=== PATIENT | male | born 1935 | race Caucasian/White ===

== ENCOUNTER 2016-10-23 06:45 | Inpatient (IN) | payer MEDICARE, OTHER ==
[~2016-10-23] VITALS: Ht 170.2 cm; Wt 62.6 kg
--- NOTE | ~2016-10-23 | OR ---
PATIENT'S NAME: [facility] AGE: 81 Y [address] ROOM: [address] [place], [place] [address] LOCATION: [facility] ADMIT DATE: 10/23/2016 OR/Procedure Report DISCHARGE DATE: FAMILY PHYSICIAN: Baltazar Davies ATTENDING PHYSICIAN: GELY LOPEZ SURGEON: Ronny Guerrier MD ART EDUCATOR: Galdino Pittman PA-C. DATE OF PROCEDURE: 10/23/2016 PREOPERATIVE DIAGNOSIS: Intertrochanteric fracture left hip. POSTOPERATIVE DIAGNOSIS: Intertrochanteric fracture left hip. PROCEDURE PERFORMED: Open reduction and internal fixation of left hip intertrochanteric fracture with intramedullary device (gamma nail). SURGEON: Ronny Guerrier MD ANESTHESIA: Spinal. ESTIMATED BLOOD LOSS: Less than 50 mL. IMPLANTS: Synthes 125 degree 11 mm trochanteric femoral nail with 105 mm lag screw and 40 mm distal interlocking screw. DRAINS: None SPECIMEN: None COMPLICATIONS: None INDICATION FOR PROCEDURE: Please refer to my separately dictated consultation note. The patient presents with a left hip intertrochanteric fracture. Operative and nonoperative options have been reviewed. Potential adverse sequelae of the injury itself have been reviewed. Risks, benefits, limitations, and indications for surgery have been thoroughly reviewed and informed consent has been granted. We have specifically reviewed risks and implications of the following: infection, malunion, nonunion, deep venous thrombosis, pulmonary embolism, mortality, neurovascular complications, blood transfusion risks, decubitus ulcer formation, pneumonia, avascular necrosis, and the potential need for further surgery (including the potential need for salvage with hip hemiarthroplasty versus total hip arthroplasty). We have discussed the necessity for 2 months of restricted weightbearing postoperatively. A preoperative internal medicine consultation has been obtained, and the patient has been medically cleared for surgery. PATIENT'S NAME: [facility] AGE: 81 Y [address] ROOM: [id number] [place], [place] [address] LOCATION: [facility] ADMIT DATE: 10/23/2016 OR/Procedure Report DISCHARGE DATE: FAMILY PHYSICIAN: Baltazar Davies ATTENDING PHYSICIAN: GELY LOPEZ DESCRIPTION OF PROCEDURE: The patient was positioned supine on the fracture table after administration of anesthesia and prophylactic antibiotics. The correct side and anticipated procedure were confirmed via a verbal timeout including myself, the marketing database analyst, and the circulating nurse. A well-padded groin post was placed. Both feet and ankles were well padded. The right foot was placed into a stirrup-type leg linn. The left foot was placed into a traction boot. Under fluoroscopic guidance, gentle longitudinal traction and internal rotation were applied across the fracture site through the left foot until a suitable reduction had been confirmed under AP and lateral fluoroscopic imaging. The lateral aspect of the left hip and thigh were scrubbed, prepped, and draped with vigilant sterile technique. The tip of the left greater trochanter was approached through a 5 cm direct lateral longitudinal incision. The iliotibial band was sharply divided longitudinally in line with the overlying skin incision. The tip of the left greater trochanter was palpated, and a cannulated awl was utilized to access the intramedullary canal of the proximal femur through the tip of the left greater trochanter. A ball tipped guidewire was placed through the awl and across the fracture site under fluoroscopic guidance, and the awl was subsequently removed. The cannulated entrance reamer was utilized through the appropriate soft tissue guide. The gamma nail was seated to the appropriate depth over the guidewire, and the guidewire was extracted. Fluoroscopic imaging confirmed appropriate position of the gamma nail. The outrigger guide and guide cannula were subsequently utilized to place a threaded-tipped guidewire centrally within the left femoral head and neck through a separate direct lateral 2 cm longitudinal incision. Appropriate position of the guidewire was confirmed under AP and lateral fluoroscopic imaging. Appropriate depth for the lag screw was measured. The cannulated reamer was set to the appropriate depth and fully seated through the appropriate soft tissue guide. The lag screw was seated to the appropriate depth under AP and lateral fluoroscopic guidance. The anti-rotational set screw was deployed. The outrigger guide and cannula were subsequently utilized to place the distal interlocking screw through a separate 5 mm direct lateral longitudinal incision. AP, lateral, and oblique fluoroscopic imaging of the left hip and left proximal femur confirmed appropriate position of all hardware and maintenance of an appropriate reduction of the fracture. Each of the 3 incisions was thoroughly irrigated with bacteriostatic saline lavage. The fascia was closed with simple deep interrupted 0 Vicryl sutures. PATIENT'S NAME: RONNY GARY [facility] AGE: 81 Y [address] ROOM: [id number] [place], [place] [address] LOCATION: [facility] ADMIT DATE: 10/23/2016 OR/Procedure Report DISCHARGE DATE: FAMILY PHYSICIAN: Baltazar Davies ATTENDING PHYSICIAN: GELY LOPEZ Each of the incisions was closed with superficial buried interrupted 2-0 Vicryl sutures and surgical cornell. The dressings consisted of Xeroform gauze, sterile gauze, and occlusive tape. There were no complications. The patient was carefully transferred off the fracture table and transported to the postanesthesia care unit in stable condition. MD ROSAS STEELE/marilee /[id number] d: 10/23/16 1834 t: 10/26/16 0926, OPERATIVE SUMMARY
--- NOTE | ~2016-10-23 | HP ---
PATIENT'S NAME: COOKIE [facility] AGE: 81 Y [address] ROOM: [place] [address] LOCATION: [facility] ADMIT DATE: 10/23/2016 History & Physical DISCHARGE DATE: FAMILY PHYSICIAN: PHYSICIAN, UNKNOWN ATTENDING PHYSICIAN: GELY LOPEZ DATE OF SERVICE: CHIEF COMPLAINT: Left hip pain. HISTORY OF PRESENT ILLNESS: This is an 81-year-old male, who says that he was trying to walk to the bathroom and his legs gave out and he fell onto his left side of the hip on the ground. He denies any head trauma or any loss of consciousness. After the fall, he felt this excruciating pain in the left hip and could not get up. He was brought to [facility] for evaluation. Over there, x-ray of the left hip showed he has a left hip fracture, and the patient was sent over here for orthopedic care. At baseline, the patient is a physically active male with METS score more than 4. At baseline, he also denies any chest pain or dyspnea at rest or on exertion. The patient also denies any history of cardiac problems including arrhythmia or heart failure or any prior cardiac surgery. He also denies ever having any chest pain before. He also denies ever having any dyspnea on exertion or at rest before. Currently, his only complaint is left hip pain. The patient was a former cigarette smoker, and he was told he had a COPD, but he does not require oxygen at home. He does use Spiriva. He says that at baseline he has daily cough, sometimes dry, sometimes productive. When it is productive, the phlegm will be yellow or green, which is from his chronic bronchitis. REVIEW OF SYSTEMS: As mentioned in the history of present illness. All other systems were reviewed and they were negative except for those mentioned in the history of present illness. PAST MEDICAL HISTORY: 1. Benign prostatic hypertrophy. 2. Gastroesophageal reflux disease. 3. Rheumatoid arthritis, on prednisone 2.5 mg p.o. daily for many years and also on hydroxychloroquine, dose unknown. 4. COPD, not on oxygen, uses Spiriva at home. The patient denies any other past medical history. PATIENT'S NAME: COOKIE [facility] AGE: 81 Y [address] ROOM: [place] [id number] LOCATION: [facility] ADMIT DATE: 10/23/2016 History & Physical DISCHARGE DATE: FAMILY PHYSICIAN: PHYSICIAN, VILMA ATTENDING PHYSICIAN: GELY LOPEZ ALLERGIES: NO KNOWN DRUG ALLERGIES ACCORDING TO THE PATIENT. HOME MEDICATIONS: Currently, it has been reconciled. The patient does take prednisone at home 2.5 mg p.o. daily for several years. He denies taking any long-term anticoagulation medication or aspirin. He denies any bleeding in the past. SOCIAL HISTORY: The patient was a former cigarette smoker. He quit when he was 28 years' old, and he used to smoke about 3 cigarettes per day for a few years. He was told by his primary physician that he has COPD. He denies any illegal drug use. He is a social alcohol drinker, but he denies any alcohol abuse or alcohol withdrawal in the past. PAST SURGICAL HISTORY: 1. Small intestine resection twice in the past. He said it was because of some food particle that got stuck in his intestine that required small intestine resection. The last one was done in the year 2015. 2. Appendectomy. FAMILY HISTORY: Father from brain cancer at old age. Mother also from old age from a cause that he could not remember. PHYSICAL EXAMINATION: VITAL SIGNS: At the time of my evaluation, temperature was 98, blood pressure was 132/87, respiration was 14, saturation was 94% on room air, and heart rate was 86. GENERAL APPEARANCE: The patient is alert and oriented x3. In no acute distress. HEENT: Pupils are equally round and reactive to light. Extraocular muscles intact. Anicteric sclerae. Nasal turbinates are normal bilaterally. Moist oral mucosa. NECK: No JVD. CARDIOVASCULAR: Regular rate and rhythm. Normal S1, S2. No murmurs, no rubs, no gallops. RESPIRATORY: Clear to auscultation. No rales, no rhonchi, no wheezing, no crackles. ABDOMEN: Soft, nontender, nondistended, normal bowel sounds, no hepatosplenomegaly. No mass. Bowel sounds are present. No abdominal rigidity. EXTREMITIES: No edema in the upper or lower extremities. NEUROLOGIC: Sensation intact. The patient can wiggle his toes in bilateral PATIENT'S NAME: RONNY GARY [facility] AGE: 81 Y [address] ROOM: [id number] [place], [place] [address] LOCATION: [facility] ADMIT DATE: 10/23/2016 History & Physical DISCHARGE DATE: FAMILY PHYSICIAN: PHYSICIAN, UNKNOWN ATTENDING PHYSICIAN: GELY LOPEZ. Dorsalis pedis pulse and posterior tibialis pulse are +2, present bilaterally. Grossly nonfocal. The only thing I did not examine is the muscle strength on the left lower extremity, obviously due to the fracture in the left hip. SKIN: No ulcer, no rash, no cyanosis. LABORATORY DATA: Currently, all the blood work is pending. IMAGING STUDIES: Chest x-ray on admission, official reading is pending. Based on my review, no gross abnormality. He might have a small pleural effusion in the right lower lung. EKG on admission on October 23, 2016, at 7:17 a.m. shows sinus rhythm, heart rate of 85 beats per minute, with left axis deviation, but no acute ischemic changes. NV 186 milliseconds. QRS 99 milliseconds. QTc 359 milliseconds. No prior EKG for comparison. ASSESSMENT AND PLAN: 1. Regarding his left hip fracture status post mechanical fall: Deferred to Orthopedic Surgery team for surgical repair. 2. Regarding his preoperative medical evaluation for noncardiac surgery: Orthopedic surgery is considered as an intermediate risk surgery. From the guideline of preoperative medical evaluation for noncardiac surgery, the patient currently does not have any active contraindication that will require any additional testing. However, the only thing that is pending is the blood work. If the patient has normal blood work, then patient can proceed to surgery this morning. However, given that patient has chronic obstructive pulmonary disease, the patient is at moderate to high risk of pulmonary complication during perioperative and postoperative period where patient might end up intubated after surgery due to his chronic obstructive pulmonary disease diagnosis and he might be difficult to get extubated. I have already expressed this concern to the patient and his family member and they are aware of his potential complication. For this reason, I am going to give him 1 dose of DuoNeb nebulization right now prior to surgery. 3. Regarding his rheumatoid arthritis, chronically on p.o. prednisone 2.5 mg daily: Given that the patient is scheduled for surgery, the patient will require a stress dose of the hydrocortisone. I will give him IV hydrocortisone 100 mg daily, first dose now, for a total of 2 days. The patient should continue his home p.o. prednisone on a daily basis. 4. Regarding his gastroesophageal reflux disease: I will give him p.o. Protonix 40 mg daily after surgery. 5. Regarding his chronic obstructive pulmonary disease: As mentioned PATIENT'S NAME: RONNY GARY [facility] AGE: 81 Y [address] ROOM: [place] [address] LOCATION: [facility] ADMIT DATE: 10/23/2016 History & Physical DISCHARGE DATE: FAMILY PHYSICIAN: PHYSICIAN, UNKNOWN ATTENDING PHYSICIAN: GELY LOPEZ before, I will give him 1 dose of DuoNeb right now and then re-evaluate after he comes out from surgery. Currently, there is no chronic obstructive pulmonary disease exacerbation at the moment. 6. Regarding his deep vein thrombosis prophylaxis: Foot pump given that patient is scheduled for surgery this morning. Time spent in care on the day of admission 35 minutes where 10 minutes was spent on chart review and the remainder of the time was spent on interview and also on physical examination and also on counseling which includes going over the plan of care and also addressing all the questions and concerns the patient and the patient's family member had at the bedside to their satisfaction. Further plan will depend on clinical course. GELY LOPEZ MD CC/marilee /[id number] D: [id number] T: 505 HISTORY & PHYSICAL
--- NOTE | ~2016-10-23 | HP ---
PATIENT'S NAME: RONNY GARY [facility] AGE: 81 Y [address] ROOM: [place] [address] LOCATION: [facility] ADMIT DATE: 10/23/2016 History & Physical DISCHARGE DATE: FAMILY PHYSICIAN: PHYSICIAN, UNKNOWN ATTENDING PHYSICIAN: GELY LOPEZ DATE OF SERVICE: ADDENDUM: The blood work came back, and the patient does not require any additional testing at the moment. The patient will be cleared to proceed for surgery; however, as mentioned before, the patient is at [id number] risk of pulmonary complication during perioperative and postoperative period, and the patient may be difficult to get extubated. The patient is aware of this potential risk and agreed to proceed with surgery. Further plan will depend on clinical course. GELY LOPEZ MD CC/marilee /[id number] D: [id number] T: [id number] HISTORY & PHYSICAL
--- NOTE | ~2016-10-23 | DS ---
PATIENT'S NAME: RONNY GARY [facility] AGE: 81 Y [address] ROOM: [address] [place], [place] [address] LOCATION: [facility] ADMIT DATE: 10/23/2016 Discharge Summary DISCHARGE DATE: 10/27/2016 FAMILY PHYSICIAN: PhysicianBaltazar ATTENDING PHYSICIAN: Clement Bernard CONSULTING PHYSICIAN: Dr. Ronny Guerrier. FAMILY PHYSICIAN: Unknown at the time of this dictation. DISCHARGE DIAGNOSES: 1. Left hip fracture, status post mechanical fall, status post open reduction and internal fixation with intramedullary nail repair. 2. Rheumatoid arthritis. 3. Gastroesophageal reflux disease. 4. Chronic obstructive pulmonary disease. 5. Benign prostatic hypertrophy. 6. Deep vein thrombosis prophylaxis. DISCHARGE MEDICATIONS: 1. Doxycycline 100 mg p.o. daily. 2. Lovenox 40 mg subcutaneously daily x14 days total postop. 3. Prilosec 20 mg p.o. q.a.m. 4. Ferrous sulfate 325 mg p.o. twice daily. 5. Plaquenil 200 mg p.o. q.a.m. 6. Prednisone 2.5 mg p.o. daily. 7. Flomax 0.4 mg p.o. q.h.s. 8. Tylenol 500 mg 1 or 2 tablets every 6 hours p.r.n. fever greater than 101 or mild pain. 9. Pennington 5/325, 1 or 2 tablets every 4 hours p.r.n. [id number] pain. 10. Dulcolax suppository 10 mg rectally p.r.n. constipation. 11. Milk of magnesia 30 mL p.o. daily p.r.n. constipation. 12. Fleet enema 133 mL rectally p.r.n. constipation. 13. Albuterol sulfate 2.5 mg INH q.2 hours p.r.n. shortness of breath or wheezing. 14. Ipratropium/albuterol 0.5/3 mg per 3 mL INH q.4 hours p.r.n. shortness of breath or wheeze. 15. Tramadol 50 mg 1 tablet p.o. q.4 to 6 hours p.r.n. pain. 16. MiraLAX 17 g p.o. daily. PRINCIPAL PROCEDURES: Open reduction and internal fixation of left hip intertrochanteric fracture with intramedullary device (gamma nail) on 10/23/[address] Ronny Guerrier. HOSPITAL COURSE: Please refer to the admitting H and P dictated by Dr. Bernard. PATIENT'S NAME: RONNY GARY [facility] AGE: 81 Y [address] ROOM: [address] [place], [place] [address] LOCATION: [facility] ADMIT DATE: 10/23/2016 Discharge Summary DISCHARGE DATE: 10/27/2016 FAMILY PHYSICIAN: , Baltazar ATTENDING PHYSICIAN: Clement Bernard The patient was admitted, Orthopedic consult was placed. The patient was seen by Dr. Guerrier. The patient was ultimately taken to the OR on 10/23/2016. The patient did reasonably well postoperatively. There were no postop complications. The patient was placed on Lovenox for DVT prophylaxis. Ultimately, Care Management was involved and arrangements were made for the patient to get discharged to [facility]. DISPOSITION: On 10/27/2016, the patient was discharged by private car in custody of his son to [facility] in [place], [place]. DISCHARGE INSTRUCTIONS: His weightbearing status is toe-touch weightbearing of the left lower extremity. No left hip range of motion or strengthening. No dressing changes and the Mepilex dressing is in place. They are to call Dr. Guerrier's office with any concerns. He should undergo PT and OT. He is on an as tolerated diet. O2 can be used to keep sats greater than 90, it was not necessary at the time of discharge. The patient is to follow up with Dr. Guerrier in 1 week. The patient voiced understanding of this plan. Thank you for allowing us to assist in the patient's care. This discharge took greater than 30 minutes. PHAM FOLEY PA-C FOR MD MARCIN BILLINGSLEY/marilee /[id number] CC: Ronny Guerrier MD [facility] d: 10/28/16 0210 t: 07/27/17 1646, DISCHARGE SUMMARY
--- NOTE | ~2016-10-23 | CON ---
PATIENT'S NAME: [facility]OOKIE [facility] AGE: 81 Y [address] ROOM: [place] [address] LOCATION: [facility] ADMIT DATE: 10/23/2016 Consultation DISCHARGE DATE: FAMILY PHYSICIAN: Baltazar Davies ATTENDING PHYSICIAN: GELY LOPEZ DATE OF CONSULTATION: 10/23/2016 REFERRING PHYSICIAN: RONNY MEJIA MD HISTORY OF PRESENT ILLNESS: Mr. Hua is an 81-year-old male presenting with a displaced left hip intertrochanteric fracture. He had no history of left hip pain prior to tripping and falling while [place] he was staying at [facility] with his nephew this weekend. He was taken to the [place] [facility] by ambulance. I was contacted by the physician in [place], and we accepted the patient to be transferred here. The patient denies history of previous pain in his hip. He has longstanding rheumatoid arthritis, but this has not created hip symptoms. He denies head trauma or loss of consciousness. He denies pain elsewhere as a result of the fall. ACTIVE MEDICAL PROBLEMS: Rheumatoid arthritis. PRESENT MEDICATIONS: Include prednisone. SOCIAL HISTORY: He lives independently. At baseline, he does not require an assistive device for ambulation. He resides in [place]. His nephew (who accompanies him) lives south of [place]. PHYSICAL EXAMINATION: GENERAL: Alert, oriented, very slender, slightly frail, elderly gentleman who is in no distress. LUNGS: Respirations are nonlabored. EXTREMITIES: His left lower extremity is shortened and externally rotated. He is moderately cachectic. There is pain with passive range of motion of the left hip. There is tenderness at the left hip. There is no pain with passive range of motion of the right hip. There is no tenderness at the right hip. There is no peripheral edema in either lower extremity. He is able to actively dorsiflex and plantar flex both ankles with 4/5 motor strength. 1+ posterior tibial pulses bilaterally. There is generalized muscle atrophy throughout both upper extremities and both lower extremities. RADIOGRAPHS: PATIENT'S NAME: [facility]IE [facility] AGE: 81 Y [address] ROOM: [place] [address] LOCATION: [facility] ADMIT DATE: 10/23/2016 Consultation DISCHARGE DATE: FAMILY PHYSICIAN: Baltazar Davies ATTENDING PHYSICIAN: GEYL LOPEZ AP and lateral radiographs of the left hip demonstrate a displaced intertrochanteric fracture. There is no hardware in the left hip. There is no lytic lesion. There is no significant left hip joint space narrowing. There is significant generalized osteopenia. IMPRESSION: 1. Displaced left hip intertrochanteric fracture. 2. Rheumatoid arthritis (on chronic prednisone). RECOMMENDATIONS: I have reviewed operative and nonoperative options. I have recommended open reduction and internal fixation. I have discussed the technical aspects of surgery as well as risks and limitations thereof. We specifically reviewed risks and implications of infection, deep venous thrombosis, pulmonary embolism, malunion, nonunion, neurovascular complications, blood transfusion risks, and potential need for further surgery. We have discussed the necessity for restricted weightbearing for 2 months. I have asked that the discharge planners speak with the patient's family members (from [place]) this morning. I have informed the patient that I think it would be most appropriate for him to go some place with 24-hour assistance to recover (as opposed to returning home independently). All of his questions and concerns were answered to his satisfaction. MD ROSAS STEELE/marilee /[id number] d: 10/23/16 1530 t: 10/26/16 0923, CONSULTATION REPORT
[2016-10-23 08:07] LABS: ALBUMIN 3.6 gm/dL (3.5-5.0); ALK PHOS 49 IU/L (33-138); ALT 30 IU/L (12-78); ANION GAP 9.7 (10.0-19.0); AST 23 IU/L (10-40); BLOOD UREA NITROGEN 22 mg/dL (6-24); CALCIUM 8.2 mg/dL (8.5-10.5); CHLORIDE 105 mMol/L (96-110); CO2 29 mMol/L (22-32); CPK 114 IU/L (35-332); POTASSIUM 3.7 mMol/L (3.7-5.1); SODIUM 140 mMol/L (135-145); TOTAL BILIRUBIN 0.7 mg/dL (0.0-1.5); TOTAL PROTEIN 6.6 g/dL (6.0-8.4)
[2016-10-23] MEDS ORDERED: DOXYCYCLINE100 MG PO (08:07)
[2016-10-23] MEDS ORDERED: DELTASONE2.5 MG PO (08:08)
[2016-10-23] MEDS ORDERED: FLOMAX0.4 MG PO (08:09)
[2016-10-23] MEDS ORDERED: PRILOSEC20 MG PO (08:10)
[2016-10-23] MEDS ORDERED: PLAQUENIL200 MG PO (08:11)
[2016-10-23 08:22] LABS: BASOPHIL % 0.2 %; HEMATOCRIT 35.9 % (33.0-50.0); HEMOGLOBIN 12.1 g/dL (11.0-16.0); IMMATURE GRANULOCYTE # 0.1 K/uL (0.0-0.3); IMMATURE GRANULOCYTE % 0.6 %; LYMPHOCYTE # 0.7 K/uL (0.8-4.0); LYMPHOCYTE % 4.9 %; MCH 32.1 pg (27.0-34.0); MCHC 33.7 gm/dL (32.0-36.5); MCV 95.2 fl (83.0-98.0); MONOCYTE # 1.1 K/uL (0.0-1.0); MONOCYTE % 7.9 %; MPV 9.1 fl (9.4-12.4); NEUTROPHIL # (ANC) 12.5 K/uL (1.4-9.0); NEUTROPHIL % 86.4 %; NRBC % 0 /100WBC (0-0.00); PLATELET COUNT 200 K/uL (150-450); RBC 3.77 M/uL (3.50-5.50); RDW-CV 14.2 % (11.9-14.6); WBC 14.4 K/uL (4.0-11.0)
[2016-10-23 08:28] LABS: INR - (THERAPEUTIC) 1.06 (0.92-1.07); PROTIME 11.1 SECONDS (9.8-11.4); PTT 25 SECONDS (25-32)
[2016-10-23 08:48] LABS: BILIRUBIN URINE NEGATIVE (NEGATIVE); BLOOD URINE NEGATIVE /UL (NEGATIVE); COLOR URINE STRAW (YELLOW); GLUCOSE URINE NEGATIVE (NEGATIVE); KETONE URINE NEGATIVE (NEGATIVE); LEUKOCYTES URINE NEGATIVE /UL (NEGATIVE); NITRITE URINE NEGATIVE (NEGATIVE); PROTEIN URINE NEGATIVE (NEGATIVE); SPEC GRAVITY URINE 1.015 (1.003-1.035); TURBIDITY URINE 1+ (CLEAR); UROBILINOGEN URINE NORMAL (NORMAL)
[2016-10-23 08:55] LABS: AMORPHOUS URINE 1+ (NEGATIVE); BACTERIA URINE RARE (NEGATIVE); EPITHELIAL URINE NEGATIVE #/HPF (NEGATIVE); RBC URINE 0-2 #/HPF (NEGATIVE); WBC URINE RARE #/HPF (NEGATIVE)
[2016-10-24 06:18] LABS: HEMATOCRIT 31.5 % (33.0-50.0); HEMOGLOBIN 10.3 g/dL (11.0-16.0)
[2016-10-25 06:13] LABS: HEMOGLOBIN 9.1 g/dL (11.0-16.0)
== END 2016-10-27 15:00 | DRG 481 ==
LOC: G3N 06:45
PROVIDERS: ADMIT Internal Medicine
PROC: 0QS706Z Reposition Left Upper Femur with Intramedullary Internal Fixation Device, Open Approach (ICD-10-PCS; principal; 2016-10-23)
DX: S72.142A Displaced intertrochanteric fracture of left femur, initial encounter for closed fracture (principal); D62 Acute posthemorrhagic anemia; J44.9 Chronic obstructive pulmonary disease, unspecified; M06.9 Rheumatoid arthritis, unspecified; W18.30XA Fall on same level, unspecified, initial encounter; K21.9 Gastro-esophageal reflux disease without esophagitis; N40.0 Benign prostatic hyperplasia without lower urinary tract symptoms
CPT/HCPCS: C1713; J0690; J1650; J1720; J2001; J2270; J7030; J7120; J7512